=== PATIENT | male | born 1975 | race Caucasian/White ===

== ENCOUNTER 2024-07-23 12:37 | Inpatient (IN) | payer OTHER ==
[2024-07-23] MEDS ORDERED: MAGNESIUM HYDROX 2400MG/30ML ORAL SUSPENSION 30 ML CUP PO PRN (14:15)
[2024-07-23] MEDS ORDERED: MAG HYDROX/AL HYDROX/SIMETH 30 ML UNIT-DOSE CUP PO PRN (14:15)
[2024-07-23] MEDS ORDERED: NALOXONE (NARCAN) HCL 4 MG/0.1 ML SPRAY NS PRN (14:15)
[2024-07-23] MEDS ORDERED: IBUPROFEN 400 MG TABLET (FP) PO PRN (14:15)
[2024-07-23] MEDS ORDERED: guaiFENesin 600 MG TABLET.ER (FP) PO PRN (14:15)
[2024-07-23] MEDS ORDERED: BENZOCAINE/MENTHOL (CHLORASEPTIC ) LOZENGE MM PRN (14:15)
[2024-07-23] MEDS ORDERED: BENZONATATE 200 MG CAPSULE PO PRN (14:15)
[2024-07-23] MEDS ORDERED: NICOTINE POLACRILEX 2 MG LOZENGE BC PRN (14:15)
[2024-07-23] MEDS ORDERED: NICOTINE POLACRILEX 2 MG GUM BUC PRN (14:15)
[2024-07-23] MEDS ORDERED: POLYETHYLENE GLYCOL (HEALTHYLAX) 3350 17 GM PACKET PO PRN (14:15)
[2024-07-23 15:19] VITALS: BMI 21.7
[2024-07-23] MEDS: ACETAMINOPHEN 325 MG TABLET (FP) PO PRN (17:05)
[2024-07-23] MEDS: LOPERAMIDE HCL 2 MG CAPSULE PO PRN (17:06)
[2024-07-23] MEDS: TETANUS AND DIPHTHERIA TOXOID 0.5 ML DISP.SYRIN IM ONE (18:34)
[2024-07-23] MEDS: BACITRACIN 0.9 GM PACKET TP SCH (18:51)
[2024-07-23] MEDS: MELATONIN 5 MG TABLETS PO SCH (21:35)
[2024-07-23] MEDS: THIAMINE 100 MG TABLET PO SCH (21:35)
[2024-07-24] MEDS: PRENATAL VITAMINS W/ FOLIC ACID TABLET (FP) PO SCH (10:11)
[2024-07-24 11:10] LABS: HEMATOCRIT 38.2 % (35.4-49); HEMOGLOBIN 12.9 GM/dL (11.7-16.9); MCH 30.8 pg (25.7-33.7); MCHC 33.6 g/dl (32.0-35.9); MEAN CELL VOLUME 91.5 fl (80-96); MEAN PLT VOLUME 6.9 fl (7.5-11.1); PLATELET COUNT 424 10^3/uL (134-434); RBC 4.17 M/mm3 (4.00-5.60); RDW 15.4 % (11.9-15.9); WHITE BLOOD COUNT 4.8 K/mm3 (4.0-10.0)
[2024-07-24 12:35] LABS: POTASSIUM 3.4 mmol/L (3.5-5.1)
[2024-07-24 12:39] LABS: ALBUMIN 3.2 g/dl (3.4-5.0); CALCIUM 8.8 mg/dL (8.5-10.1)
[2024-07-24 12:40] LABS: BLOOD UREA NITROGEN 22.6 mg/dL (7-18)
[2024-07-24 12:42] LABS: CREATININE 0.7 mg/dL (0.55-1.3)
[2024-07-24 12:44] LABS: BILIRUBIN,TOTAL 0.2 mg/dL (0.2-1); TOT PROT 7.7 g/dl (6.4-8.2)
[2024-07-25] MEDS: POTASSIUM CHLORIDE TABS 20 MEQ TABLET.ER (FP) PO SCH (10:07)
[2024-07-25] MEDS: RIFAXIMIN 550 MG TABLET PO SCH (10:32)
[2024-07-25 18:01] LABS: EPI CELLS 8 /uL (0-25.1); HYALINE CASTS 3 /uL (0-3.1); PH,URINE 5.5 (5.0-8.0); URINE APPEARANCE CLEAR; URINE BACTERIA 88 /uL (0-1359); URINE BILIRUBIN NEGATIVE (NEGATIVE); URINE COLOR YELLOW; URINE GLUCOSE (UA) TRACE (NEGATIVE); URINE KETONE NEGATIVE (NEGATIVE); URINE LEUK ESTERASE NEGATIVE (NEGATIVE); URINE NITRITE NEGATIVE (NEGATIVE); URINE PROTEIN 1+ (NEGATIVE); URINE RBC 11 /uL (0-23.9); URINE UROBILINOGEN 0.2 mg/dL (0.2-1.0); URINE WBC 12 /uL (0-25.8)
[2024-07-25] MEDS: hydrOXYzine PAMOATE 25 MG CAPSULE (FP) PO PRN (22:46)
[2024-07-26 11:45] LABS: INR 1.05 (0.83-1.09); PROTHROMBIN TIME (PATIENT) 11.4 SEC (9.7-13.0)
[2024-07-26 12:38] LABS: POTASSIUM 3.8 mmol/L (3.5-5.1)
[2024-07-26 12:40] LABS: ALBUMIN 3.1 g/dl (3.4-5.0); BLOOD UREA NITROGEN 16.1 mg/dL (7-18); CALCIUM 8.5 mg/dL (8.5-10.1); MAGNESIUM 1.6 mg/dL (1.8-2.4)
[2024-07-26 12:43] LABS: CREATININE 0.6 mg/dL (0.55-1.3)
[2024-07-26 12:45] LABS: BILIRUBIN,TOTAL 0.2 mg/dL (0.2-1); TOT PROT 7.8 g/dl (6.4-8.2)
[2024-07-27] MEDS: IBUPROFEN 600 MG TABLET (FP) PO PRN (19:06)
[2024-07-29] MEDS: NALTREXONE HCL 50 MG TABLET PO SCH (13:39)
[2024-07-29] MEDS: BACLOFEN 10 MG TABLET (FP) PO SCH (21:54)
[2024-07-30] MEDS: NALTREXONE HCL 50 MG TABLET PO SCH (09:59)
[2024-07-31] MEDS ORDERED: LACTULOSE 20 GM/30 ML UDC (FOR ORAL USE ONLY) PO PRN (11:35)
[2024-07-31] MEDS: CHOLECALCIFEROL (VIT D3) 400 UNIT (10 MCG) TABLET PO SCH (14:14)
[2024-07-31] MEDS: SUVOREXANT 10 MG TABLET PO PRN (21:16)
[2024-08-05] MEDS: NALTREXONE MICROSPHERES (VIVITROL) 380 MG DISP.SYRIN IM ONE (12:13)
[2024-08-09 06:08] VITALS: BP 111/67; PULSE 87; RESP 16; TEMP 97.3
== END 2024-08-09 12:07 | disposition left against medical advice (07) | DRG 772 ==
LOC: YASAS 12:37 → Y5N 16:15 → Y3NR 08-02 14:59 → Y5N 08-08 03:13 → Y3NR 08-08 03:15 → Y3W 08-08 10:23
PROVIDERS: ADMIT Psychiatry & Neurology Pain Medicine; ATTEND Psychiatry & Neurology Pain Medicine
PROC: HZ42ZZZ Group Counseling for Substance Abuse Treatment, Cognitive-Behavioral (ICD-10-PCS; principal; 2024-07-23)
DX: F10.20 Alcohol dependence, uncomplicated (principal); F14.20 Cocaine dependence, uncomplicated; E87.6 Hypokalemia; F91.8 Other conduct disorders; Z91.199 Patient's noncompliance with other medical treatment and regimen due to unspecified reason; Z59.00 Homelessness unspecified
CPT/HCPCS: 0241U-QW; 36415; 80053; 80305; 80307; 81003; 82140; 82652; 83735; 85027; 85610; 86780; 86803; 87811; 93005; 93010; J0475